=== PATIENT | male | born 1950 | race Caucasian/White ===

== ENCOUNTER → 2022-12-01 14:40 | Outpatient (BNVA) | payer MEDICARE, SELFPAY | PROVIDERS: Visit Provider Physician Assistant ==

== ENCOUNTER 2023-04-09 12:39 | Outpatient (REF) | payer MEDICARE, SELFPAY | END 2023-04-09 12:40 | disposition home or self-care (01) | LOC: HO.HOSX 12:39 | PROVIDERS: Visit Provider Physician Assistant | DX: Z13.89 Encounter for screening for other disorder (principal) ==

== ENCOUNTER 2023-04-10 14:50 | Outpatient (REF) | payer MEDICARE, SELFPAY ==
--- NOTE | ~2023-04-10 | XR_ITS ---
EXAMINATION: XR cervical spine 4V CLINICAL INFORMATION: Diseases of the spinal cord COMPARISON: None TECHNIQUE: 4 views of the cervical spine were obtained. FINDINGS: The cervical spine is visualized to the level of C7-T1 on the lateral view. Loss of the usual cervical spine lordosis which may be due to positioning or muscle spasm. No instability on flexion extension views. Status post C4-C5 and C5-C6 discectomy and anterior spinal fusion. No hardware fracture or complication. There is osseous fusion across the fused levels. Vertebral body heights are otherwise maintained. Moderate multilevel degenerative disc disease at additional levels with loss of disc space height and facet arthropathy. No prevertebral soft tissue swelling. Calcifications in the soft tissues of the bilateral neck may reflect carotid calcifications. XR/XR cervical spine 4V IMPRESSION: 1. Status post C4-C5 and C5-C6 discectomy and anterior spinal fusion. No hardware fracture or complication. There is osseous fusion across the fused levels. 2. Loss of the usual cervical spine lordosis which may be due to positioning or muscle spasm. No instability on flexion extension views. 3. Moderate spondylosis of the cervical spine, as above detailed.
== END 2023-04-10 14:51 | disposition home or self-care (01) ==
LOC: HO.HOSX 14:50
PROVIDERS: Visit Provider Physician Assistant
DX: G95.9 Disease of spinal cord, unspecified (principal); M62.81 Muscle weakness (generalized); R20.0 Anesthesia of skin; Z98.1 Arthrodesis status
CPT/HCPCS: 72050; 99212

== ENCOUNTER 2023-04-10 14:54 | Outpatient (AMB) | payer MEDICARE, SELFPAY ==
--- NOTE | 2023-04-10 15:24 | HO.SPINEOV ---
Intake Intake Visit Reasons: 6 month follow up with Xrays Intake Note: Mr. Constantino is here today for his 6mo f/u w/x-rays. Behavioral Consultant Required: No Assessment & Plan Assessment & Plan (1) Cervical myelopathy: Code(s): G95.9 - Disease of spinal cord, unspecified Plan Mr Rea is here to follow-up today. He underwent a C4-5, C5-6 anterior cervical fusion for severe myelopathy a little less than a year ago. He has made steady progress over time, however reports that he does have some frustration with the lack of progress over the last few months. He still has significant balance issues and still feeling numbness of his hands with weakness of his legs. We did discuss before surgery that often myelopathic patients will not fully recover, or it may take up to 2 years to see a final result. He was anxious about the lack of progress recently so he came back to see us. He still continues to do his home physical therapy exercises but does feel somewhat limited by them. He is interested in going to a formal physical therapy location near his home where they have more quite met. On my exam he is able to stand up out of a chair independently but it is slow. He had continues to have proximal leg weakness left greater than right as well as some mild quadriceps weakness. He still has mild hand weakness as well and diffuse hyperreflexia. Although he has made progress over time in his strength and his gait, there is still some lingering question in his mine as to whether he could be better. His x-rays today show evidence of solid fusion at the cages. I certainly think it is reasonable to check a postoperative MRI to make sure there is no residual posterior compression from the posterior elements and ligaments. He would like to do the MRI closer to home so we will schedule it at [facility]. I have also given him a referral to PT at his request to help with some of the leg strengthening. Total amount of time spent in this visit was 20 minutes in discussion of symptoms, cervical x-ray imaging results and subsequent plan of care Henry Hobson MD,PhD [facility] Orders: Orders PT Evaluation and Treatment Today G95.9 - Disease of spinal cord, unspecified MR cervical spine wo con Today G95.9 - Disease of spinal cord, unspecified Coding Level of Care Code Est Pt Level 3 (72623) Diagnoses Cervical myelopathy G95.9
== END 2023-04-10 15:47 | disposition home or self-care (01) ==
PROVIDERS: Visit Provider Physician Assistant
DX: G95.9 Disease of spinal cord, unspecified (principal)
CPT/HCPCS: 99213